=== PATIENT | male | born 1965 | race Caucasian/White ===

== ENCOUNTER 2019-05-17 11:59 | Outpatient (CLI) | payer BC, SELFPAY ==
--- NOTE | 2019-05-17 12:17 | ECG_ITS ---
NAME OF STUDY: TREADMILL STRESS TEST INDICATION: Chest Pain Baseline blood pressure of 134/89 mm Hg, heart rate 89 beats per minute. 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 Nonspecific ST depression in lead II. The patient exercised for 7 minutes 36 seconds on a standard Dion protocol. Patient attained a maximum heart rate of 152 beats per minute(91 % of the maximum predicted heart rate) with a blood pressure at the peak exercise of 181/91 mm Hg and oxygen saturation 97%. The EKG at the peak exercise revealed no significant ST-T wave changes. Patient did not have any chest pain or any significant arrhythmia with the exercise During the recovery phase, there were no new changes. Blood pressure at the end of the recovery phase was 140/89 mm Hg with a heart rate of 100 beats per minute and oxygen saturation 97%. CONCLUSION: 1. Normal EKG response to treadmill exercise. Nonspecific upsloping ST depression in lead II at rest and with exercise not meeting diagnostic criteria for ischemia. 2. No exercise-induced chest pain or cardiac arrhythmia 3. Good exercise tolerance, attained a maximum of 10.2 METs. Maximum VO2 of 35.7 mL/kg/min. 4. Baseline normal blood pressure with normal response to exercise. Electronically Signed On 05-18-2019 11:17:20 [employer] by Tyra Barrios M.D. [email or web address]
[2019-05-17 12:20] VITALS: BMI 40.8
[2019-05-17 12:37] VITALS: BP 181/85; PULSE 100
== END 2019-05-17 12:00 | disposition home or self-care (01) ==
LOC: CDL 12:01
PROVIDERS: Family Provider Nurse Practitioner Family; PCP Nurse Practitioner Family; Visit Provider Nurse Practitioner Family
DX: R07.9 Chest pain, unspecified (principal)
CPT/HCPCS: 93017

== ENCOUNTER 2019-08-29 11:56 | Outpatient (CLI) | payer BC, SELFPAY ==
--- NOTE | 2019-08-29 12:02 | XR_ITS ---
WS: [id number] PROCEDURE: XR chest 2V* [id number] CLINICAL INFORMATION: DYSPNEA ON EXERTION COMPARISON: None. FINDINGS: Heart: Normal cardiac silhouette. Lungs: Mild chronic emphysematous changes. No acute pulmonary infiltrates. Bones: Normal visualized bony structures. XR/XR chest 2V* [id number] IMPRESSION: Unremarkable chest
== END 2019-08-29 11:57 | disposition home or self-care (01) ==
LOC: RADWPI 11:59
PROVIDERS: Family Provider Nurse Practitioner Family; PCP Nurse Practitioner Family; Visit Provider Nurse Practitioner Family
DX: R06.09 Other forms of dyspnea (principal)
CPT/HCPCS: 71046

== ENCOUNTER 2019-09-11 08:00 | Outpatient (CLI) | payer BC, SELFPAY ==
[2019-09-11 10:32] LABS: Hematocrit 23.4 % (42.0-52.0); Hemoglobin 8.1 g/dL (11.7-16.6); Mean Corpuscular HGB Conc 34.6 g/dL (30.0-36.0); Nucleated Red Blood Cells # 0.1 /100WBC; Nucleated Red Blood Cells % 3.3 %; Red Blood Count 2.25 10^6/uL (4.1-5.3); Red Cell Distribution Width 17.2 % (12.1-15.1); White Blood Count 1.5 10^3/uL (4.0-10.0)
[2019-09-11 10:52] LABS: Alanine Aminotransferase 40 U/L (0-41); Alkaline Phosphatase 62 IU/L (40-130); Aspartate Amino Transferase 28 U/L (0-40); Blood Urea Nitrogen 17 mg/dL (6-20); Calcium 9.5 mg/dL (8.5-10.5); Carbon Dioxide 26 mmol/L (22-29); Chloride 94 mmol/L (98-107); Glomerular Filtration Rate 87.6 mL/min (90-130); Glucose 182 mg/dL (65-115); Lactate Dehydrogenase 317 U/L (135-225); Osmolality Calculated 279 mOsm/kg (285-295); Sodium 134 mmol/L (136-145); Total Bilirubin 0.6 mg/dL (0.15-1.2)
[2019-09-11 11:11] LABS: HIV 1 & 2 Antibody Non-Reactive (Non-Reactiv); HIV 1 & 2 Antigen Non-Reactive (Non-Reactiv)
[2019-09-11 11:12] LABS: LAB Peripheral Smear Sent for Review
[2019-09-11 11:19] LABS: Slide Review Slide Review Perform
[2019-09-11 11:21] LABS: Platelet Count 12 10^3/cmm (130-400)
[2019-09-11 11:29] LABS: Absolute Segmented Neutrophil 0.3 10/cmm (1.6-7.1); Corrected White Blood Count 1.4 10^3/cmm (4.8-10.8); Giant Platelets Trace; Lymphocytes 51 %; Lymphocytes Absolute 0.8 10^3/cmm (1.2-3.4); Monocytes Absolute 0.2 10^3/cmm (0.1-0.6); Platelet Estimate Decreased (Normal); Polychromasia 1+; Segmented Neutrophils 22 %; Total Cells Counted 100 (0-100)
[2019-09-11 11:30] LABS: Anisocytosis 2+; Poikilocytosis Trace; Tear Drop Cells Trace
[2019-09-11 11:31] LABS: Hepatitis A Antibody IgM Non-Reactive (Nonreactive); Hepatitis B Core AB, Total Non-Reactive (Nonreactive); Hepatitis B Surface AB 3.5 (0-8.5); Hepatitis B Surface Antigen Non-Reactive (Nonreactive); Hepatitis C Virus Antibody Non-Reactive (Nonreactive)
[2019-09-11 11:42] LABS: Erythrocyte Sedimentation Rate 27 mm/hr (0-10)
[2019-09-11 13:30] LABS: C Reactive Protein 10.3 mg/L (0.0-4.9); Iron 252 ug/dL (59-158); Total Iron Binding Capacity 311 mcg/dl; Unsaturated Iron Binding 59 ug/dL (112-347)
[2019-09-11 14:13] LABS: Ferritin 2031 ng/mL (30-400)
[2019-09-12 06:41] LABS: PROTEIN, TOTAL 6.9 g/dL (6.1-8.1)
[2019-09-12 13:35] LABS: KAPPA LIGHT CHAIN, FREE, SERUM 9.5 mg/L (3.3-19.4); LAMBDA LIGHT CHAIN, FREE, SERU 7.3 mg/L (5.7-26.3)
[2019-09-12 14:36] LABS: ALBUMIN 4.4 g/dL (3.8-4.8); ALPHA 1 GLOBULIN 0.4 g/dL (0.2-0.3); ALPHA 2 GLOBULIN 0.6 g/dL (0.5-0.9); Anti-Nuclear Antibody Screen NEGATIVE (NEGATIVE); BETA 1 GLOBULIN 0.5 g/dL (0.4-0.6); BETA 2 GLOBULIN 0.3 g/dL (0.2-0.5); GAMMA GLOBULIN 0.7 g/dL (0.8-1.7)
== END 2019-09-11 08:01 | disposition home or self-care (01) ==
PROVIDERS: PCP Nurse Practitioner Family; Visit Provider Internal Medicine Medical Oncology
DX: D61.818 Other pancytopenia (principal); A77.0 Spotted fever due to Rickettsia rickettsii; I10 Essential (primary) hypertension; E78.5 Hyperlipidemia, unspecified; K57.92 Diverticulitis of intestine, part unspecified, without perforation or abscess without bleeding; A04.72 Enterocolitis due to Clostridium difficile, not specified as recurrent; R53.83 Other fatigue; R06.02 Shortness of breath
CPT/HCPCS: 80053; 82728; 83010; 83540; 83550; 83615; 83883; 84155; 84165; 85007; 85025; 85045; 85651; 86038; 86140; 86705; 86706; 86709; 86803; 87340; 87806; 99205

== ENCOUNTER 2019-09-12 09:17 | Outpatient (RCR) | payer BC, SELFPAY ==
--- NOTE | 2019-09-11 17:17 | ONC CON_ITS ---
Dr. Burden New Patient Note Patient: Brenton Robbins Unit #: [id number]: 1965 Dicatated By: Walter Burden M.D.Date of Visit: September 11, 2019 Onc MED New Patient/Consult Referring Physician: [facility] Chief Complaint: Pancytopenia. History of Present Illness: This is a 54-year-old man with severe pancytopenia. This patient has been in good general health. He had presented with a history of progressively worsening fatigue and shortness of breath over a period of several weeks. He was seen by Bisi Dangelo on 09/05/2019. His laboratory studies included CBC which showed hemoglobin low at 9.0 g with hematocrit 25.7%. The white blood cell count was 1600 and the platelet count was 28,000. The red cell indices were macrocytic with MCV 105 and MCH 36. LDH was elevated at 386 IU/L. Comprehensive metabolic profile showed slightly low potassium at 3.3 mmol/L and slightly elevated SGPT at 50/44 IU/L. TSH normal at 3.920 ???IU/mL. His further laboratory studies included a B12 level which was elevated at 1293 pg/mL. His tick fever panel was negative for Ehrlichia and Lyme disease. The [place] Spotted Fever IgG was positive with the IgM also elevated at 1.46. He is seen now for further management. He continues to have severe fatigue and exertional dyspnea. He is mostly sedentary. His ECOG score is 3. He still has good appetite. His weight is stable. He has no fever or night sweats. He complains that his vision is been fuzzy and he has had a decrease in his hearing. He complains of having a sensation of a river running through his ears. He has developed blood blisters in his mouth, and he also had one episode of epistaxis. He was thrown from a horse 3 weeks ago and he says he bruised up pretty badly. Last week his back was hurting. More recently has been having pain in his neck and head. He has had a little bit of chest pain. He was having nausea when he was taking prednisone, that has resolved. His bowels have been a little slow. Bladder function has been okay. He has had a little bit of numbness in his feet. He has no other focal neurologic symptoms. Past Medical History: His medical history includes hypertension and hyperlipidemia. He has been told in the past that his EKG showed evidence of having had a previous heart attack. He had a negative stress test within the past 6 months. He has a history of diverticulitis and a history of C. difficile colitis. Past Surgical History: His surgical/procedural history includes biceps tendon repair on the left, scrotal hernia repair, tonsillectomy, and umbilical hernia repair. He had a colonoscopy in 2019. Medications: Chlorthalidone 1 Tablet (of 50 mg) Oral daily, Lisinopril 1 Tablet (of 20 mg) Oral b.i.d., Metoprolol Tartrate 1 Tablet (of 50 mg) Oral b.i.d., MiraLax Pack Oral PRN, ProAir HFA Aerosol, solution Inhalation PRN Allergies: PENICILLIN Social History: Mr. Robbins is . He has been doing farm work. He is a non-smoker. He does not drink alcohol. Family History: Father at age 74 with non-Hodgkin's lymphoma. Mother at age 90 of natural causes . Two sisters are in good health. His maternal grandparents had heart disease. Review Of Symptoms: Constitutional - He has very limited activity tolerance, and he is mostly sedentary. He has good appetite. His weight is stable. No fever, chills, hot flashes, or night sweats. ECOG score is 3, Eyes - He complains that his vision is fuzzy, ENMT - He has had decrease in his hearing. He also complains of having a constant sensation like a river running through his ears. He has no sinus congestion/drainage. He has had sore/blood blisters in his mouth. He has not had sore throat or difficulty swallowing, Hematologic/Lymphatic - He has not been aware of any enlarged lymph nodes. He is having a lot of bruising and he had one episode of epistaxis, Respiratory - He has shortness of breath. He has a little bit of cough. No pleuritic pain or hemoptysis, Cardiovascular - No angina pain. No palpitations, Gastrointestinal - He was having nausea with the prednisone, but that has resolved. No vomiting. No heartburn or acid reflux. His bowels have been a little slow lately. No diarrhea. No blood in the stool or black stools, Genitourinary (M) - No dysuria or hematuria. No urinary frequency. No urgency or incontinence, Musculoskeletal - His back was hurting last week. For the past 2 days he has been having pain in his neck and hand. He had been thrown from a horse 3 weeks ago, and he got pretty bruised up from that injury, Integumentary - He has had no skin rash, Neurologic - He recently has had headache. No dizziness. He has a little bit of numbness in his feet, Psychiatric - No anxiety or depression. He has not been sleeping well. Vital Signs: Performed on September 11, 2019 08:10: 5, 40.67 (HIGH), 2.48 sq.m, 71.00 in, 100 %, 69 /min, 24 /min, 142/83 mm(hg) (HIGH), 98.6 F, and 291.6 lbs (HIGH). Physical Examination: Constitutional - He appears somewhat weak generally, but not acutely ill, Eyes - Sclerae nonicteric. Conjunctivae clear, ENMT - There are multiple small mucosal hemorrhages in the oral cavity, including the tongue and buccal mucosa on both sides. TMs are noninflamed, Neck - No mass or thyromegaly, Hematologic/Lymphatic - No cervical, clavicular, or axillary adenopathy, Respiratory - Lungs are clear with good air movement bilaterally, Cardiovascular - Heart rhythm is regular. There is no murmur, gallop, or rub noted, Abdomen - Moderately distended. Liver and spleen do not appear enlarged. There is no abdominal mass or ascites noted and there is no inguinal adenopathy, Back/Spine - No spine or CVA tenderness noted, Extremities - No edema. Pedal pulses are palpable bilaterally. There are just a few scattered petechiae noted on the lower legs, Integumentary - No rashes. No suspicious skin lesions noted, Neurologic - No focal neurologic deficits noted. Impression: 1. Patient with severe pancytopenia. Etiology is uncertain, but the presentation would be most consistent with myelodysplastic syndrome/leukemia or less likely aplastic anemia. 2. He is having significant symptomatology including fatigue and shortness of breath, and he also appears to have a significant bleeding tendency. 3. His tick fever panel showed a positive IgG to [place] spotted fever with the IgM also elevated at 1.46. His other medical illnesses include: 4. Hypertension. 5. Hyperlipidemia. 6. He has a history of diverticulitis. 7. He has a history of C. difficile colitis. Plan: The laboratory findings and clinical implications were reviewed with the patient and his . He will have additional laboratory studies today to include CBC and typenex, reticulocyte count, haptoglobin, LDH level, sed rate, and serum protein electrophoresis/free light chain assay. I will review the blood smear. He will return for transfusion of PRBC and/or platelets as indicated. I will go ahead and schedule for bone marrow aspiration/biopsy. In the meantime, he will be starting empiric antibiotic coverage for the RMS[facility]. Signed By: Walter Burden M.D. <<Signature on File>>
[2019-09-12] VITALS (23 sets, daily range): BP systolic 128–147; BP diastolic 76–90; PULSE 70–83; RESP 17–18; TEMP 36.7–37.2; O2SAT 97–99
[2019-09-12] MEDS: sodium chloride 0.9% 250 ML 45 ML IV (10:10)
[2019-09-12 10:20] LABS: INR 1.43 (0.8-1.2)
[2019-09-12 10:21] LABS: Partial Thromboplastin Time 25.8 SECONDS (23.9-36.7)
[2019-09-12 10:27] LABS: Uric Acid 7.7 mg/dL (3.4-7.0)
[2019-09-12] MEDS: acetaminophen 325 mg Tablet 650 MG PO ×2 (11:00→14:25)
[2019-09-12 11:05] LABS: Fibrinogen 91 mg/dL (184-529)
[2019-09-12] MEDS: FUROsemide 10 mg/mL SDV 2mL 20 MG IV (12:12)
[2019-09-12] MEDS: diphenhydrAMINE 25 mg Capsule PO (14:25)
== END 2019-09-30 23:59 | disposition home or self-care (01) ==
LOC: ONCMED 09:17
PROVIDERS: PCP Nurse Practitioner Family; Visit Provider Internal Medicine Medical Oncology
DX: D61.818 Other pancytopenia (principal); R53.83 Other fatigue; R53.1 Weakness
CPT/HCPCS: 36430; 84550; 85384; 85610; 85730; 86850; 86900; 86920; 86927; 96365; 96367; J1200; J1940; J2405; J7050; P9012; P9017; P9037; P9040